=== PATIENT | female | born 1990 | race Caucasian/White ===

== ENCOUNTER 2019-11-18 20:30 | Inpatient (IN) | payer OTHER ==
[~2019-11-18] VITALS: Ht 162.6 cm; Wt 57.6 kg
--- NOTE | 2019-11-18 20:30 | NUR ---
[id number] FROM HOME, POSSIBLE INGESTION UNKNOWN AMOUNT OF PILLS PER RA, BS 151., pt to bed 4, pt awake, arousable, -sob, pt on montior. pending md vigil
[2019-11-18] MEDS ORDERED: LORAZEPAM INJ 2 MG/ML VIAL ONE (20:34)
--- NOTE | 2019-11-18 20:35 | NUR ---
pt was actively seizing, dr. paul at bedside with verbal order for ativan 2mg ivp
[2019-11-18 20:50] LABS: BASOPHILS % (AUTO) 0.2 % (0.0-2.0); EOSINOPHILS % (AUTO) 0.2 % (0.0-6.0); HEMATOCRIT 39 % (33-45); HEMOGLOBIN 12.7 g/dL (11.5-14.8); LYMPHOCYTES # (AUTO) 2.1 /CMM (0.8-4.8); MEAN CORPUSCULAR HGB CONC 32 g/dl (31.0-36.0); MEAN CORPUSCULAR VOLUME 88 fL (82-100); MONOCYTES # (AUTO) 0.6 /CMM (0.1-1.30); MONOCYTES % (AUTO) 7.6 % (2.0-12.0); NEUTROPHILS # (AUTO) 5.5 /CMM (1.8-8.9); PLATELET COUNT (AUTO) 200 /CMM (150-450); RED BLOOD CELL COUNT(AUTO) 4.45 MIL/uL (4.0-5.2); WHITE BLOOD COUNT (AUTO) 8.3 K/uL (4.3-11.0)
[2019-11-18] MEDS ORDERED: LORAZEPAM INJ 2 MG/ML VIAL IV ONE (21:00)
[2019-11-18] MEDS ORDERED: IV NS 0.9% 1,000 ML BAG IV ONE (21:00)
[2019-11-18 21:05] LABS: ALANINE AMINOTRANSFERASE 19 U/L (12-78); ALBUMIN 3.5 g/dL (3.4-5.0); ALCOHOL, BLOOD < 3 mg/dL (0-0); ALKALINE PHOSPHATASE 44 U/L (46-116); ASPARTATE AMINOTRANSFERASE 21 U/L (15-37); BILIRUBIN,DIRECT 0.1 mg/dL (0.0-0.2); BILIRUBIN,TOTAL 0.3 mg/dL (0.2-1.0); CALCIUM, SERUM 8.4 mg/dL (8.5-10.1); CARBON DIOXIDE 20 mmol/L (21-32); CHLORIDE 100 mmol/L (98-107); CREATININE 1.5 mg/dL (0.6-1.3); GLUCOSE 152 mg/dL (74-106); POTASSIUM 3.2 mmol/L (3.5-5.1); SODIUM SERUM 138 mmol/L (136-145); UREA NITROGEN, BLOOD 10 mg/dL (7-18)
[2019-11-18] MEDS: LEVETIRACETAM (500MG) 1,000 MG in IV NS 0.9% 100 ML IV SCH (21:05)
[2019-11-18 21:06] LABS: ACETAMINOPHEN < 2 ug/ml (10-30); SALICYLATE < 2.8 mg/dL (2.8-20.0)
--- NOTE | 2019-11-18 21:08 | NUR ---
PT RETURNED FROM CT
--- NOTE | 2019-11-18 21:20 | NUR ---
Pt's mom Regina contact info
[2019-11-18 21:30] LABS: APPEARANCE,URINE Clear (CLEAR); BILIRUBIN,URINE Negative (NEGATIVE); BLOOD, URINE Negative Ery/uL (NEGATIVE); COLOR,URINE Yellow (YELLOW); KETONES,URINE Negative (NEGATIVE); LEUKOCYTE ESTERASE ,URINE Negative (NEGATIVE); NITRITE, URINE Negative (NEGATIVE); PH,URINE 6.5 (5.0-8.0); PROTEIN,URINE Negative (NEGATIVE); UGLUCOSE Negative (NEGATIVE); UROBILINOGEN,URINE 0.2 EU/dL (0.2)
--- NOTE | 2019-11-18 22:26 | NUR ---
ida hidalgo [facility] [place] - [phone]
[2019-11-18] MEDS ORDERED: PRAZ2CAP2 PO (22:29)
[2019-11-18] MEDS ORDERED: GABA-534 PO (22:29)
[2019-11-18] MEDS ORDERED: ARIP5TAB59 PO (22:29)
[2019-11-18] MEDS ORDERED: ESCI20TA PO (22:29)
--- NOTE | 2019-11-18 23:19 | NUR ---
EDD (ROOMMATE) CONTACT INFORMATION: [phone]
--- NOTE | 2019-11-18 23:31 | NUR ---
PER [facility], PT MOST LIKELY TRANSFERRED TO [facility] PENDING MD TO
--- NOTE | 2019-11-19 00:12 | NUR ---
DR. EVANGELISTA ON THE PHONE WITH DR. DURAN ([facility] )
--- NOTE | 2019-11-19 00:18 | NUR ---
ALIA DURAN, PT WILL BE ADMITTED TO [facility]. INFORMED CHAY FROM [facility]
--- NOTE | 2019-11-19 00:42 | NUR ---
BED ASSIGNMENT 312-1
--- NOTE | 2019-11-19 00:49 | NUR ---
report given to charge nurse ale for elisabet; pt will be transported to 3rd floor
[2019-11-19] MEDS ORDERED: LORAZEPAM INJ 2 MG/ML VIAL IV PRN (01:00)
[2019-11-19] MEDS ORDERED: ONDANSETRON HCL/PF 4 MG/2 ML VIAL IVP PRN (01:00)
[2019-11-19] MEDS ORDERED: ACETAMINOPHEN 325 MG TABLET PO PRN (01:00)
[2019-11-19] MEDS ORDERED: GABAPENTIN 300 MG CAPSULE PO SCH (01:00)
[2019-11-19] MEDS ORDERED: HYDROCODONE/APAP 5/325MG 1 EACH TABLET PO PRN (01:00)
--- NOTE | 2019-11-19 01:43 | NUR ---
PT TO BE TRANSPORTED VIA GURNEY PER PROTOCOL.
[2019-11-19 01:45] VITALS: BP 109/67
--- NOTE | 2019-11-19 01:45 | NUR ---
ADMISSION 29 y/o female admitted for Overdose/Depression. Patient is respond slowly when asked question, A/O x3, not opening her eyes, poor concentration. Per patient she took Lexapro 60, did not continue to answer when asked exactly how many mg or tab of Lexapro and why she took it. Denies pain, skin intact. Fall, seizure precaution maintained.
[2019-11-19 04:00] VITALS: BP 114/65
--- NOTE | 2019-11-19 06:35 | NUR ---
END OF SHIFT REPORT Patient in bed, stable Oxygen saturation on RA. Sinus rhythm in the Tele monitor, no episode of Seizure during the shift. Patient appears weak, depressed, respond slow, A/O x3. Suicide risk assessment done, patient able to answer questions willingly. Psyche consult to follow, sitter to be placed. Charge nurse aware. Will endorse to Oncoming RN.
--- NOTE | 2019-11-19 08:00 | NUR ---
REPAIRER SHOE STICKS OPENING NOTES Received Patient awake and resting in bed. A/O x 3. Patient in stable condition with no acute distress. Breathing even and unlabored on room air with no respiratory distress. Denies pain. No signs and symptoms of pain. Telemonitor in place and patent reading SR with HR-88. 20g PIV on LAC clean, intact, patent and flushing well. Safety precautions in place. Bed locked and set to lowest position with side rails x 2 up. All needs rendered at this time. Call light within reach. Will continue to monitor.
[2019-11-19] MEDS ORDERED: ESCITALOPRAM OXALATE (10 MG) 10 MG TABLET PO SCH (09:00)
[2019-11-19] MEDS ORDERED: ARIPIPRAZOLE 5 MG TABLET PO SCH (09:00)
[2019-11-19] MEDS: Potassium Chloride 20 MEQ in IV NS 0.9% 1,000 ML IV PRN (09:21)
[2019-11-19 09:23] VITALS: BP 114/69
[2019-11-19] MEDS: LEVETIRACETAM (500MG) 1,000 MG in IV NS 0.9% 100 ML IV SCH ×2 (09:53→21:06)
--- NOTE | 2019-11-19 10:48 | NUR ---
MS RN NOTES Per pharmacy, notified Gabby CARVAJAL for clarification of Keppra 500mg IVPB q12h. Per MD, may change Keppra 500mg IVPB q12h to Keppra 500mg PO BID. Order noted and carried out. Patient in stable condition. Will continue to monitor.
--- NOTE | 2019-11-19 11:46 | NUR ---
Social service consult requested by MD for intentional overdose. Per MD notes, pt is a 29-year-old Female brought in by ambulance for evaluation of altered mental status. Paramedics were reportedly called after someone notified them the patient had ingested pills and expressed suicidality. The patient began seizing upon arrival to the emergency department. She was treated with Ativan 2mg with termination of seizure activity. CERTIFIED HYPERBARIC TECHNICIAN met with the pt bedside. CERTIFIED HYPERBARIC TECHNICIAN introduced self and explained her role. Pt is alert and oriented x 3. Pt appears lethargic and depressed. Pt states she lives with friends [place] [id number] in [place]. Pt's emergency contact is her mother Regina . Pt informed CERTIFIED HYPERBARIC TECHNICIAN that she intentionally took 100 tabs of Lexapro due to feeling suicidal. Pt states he has a restraining order against her by another woman due to sending inappropriate love text messages. Pt. has history of psychiatric hospitalization with the most recent in September 2018 [facility]. Pt. was served the restraining order in 2017 [facility] and was placed on a 5150 hold as danger to other. CERTIFIED HYPERBARIC TECHNICIAN asked pt if she would go voluntary to a psychiatric hospital, and pt. declined. Pt states she has a psychiatric diagnosis of PTSD and doesn't like psychiatric hospitals. Pt is unable to contract for safety at this time. Pt denies any current alcohol use. Pt. states she smokes marijuana daily. Pt reports to smoke cigarettes occasionally. 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 A psychiatry consult is pending for the pt. CERTIFIED HYPERBARIC TECHNICIAN updated [facility] with aforementioned information.
[2019-11-19 16:21] VITALS: BP 112/62
--- NOTE | 2019-11-19 19:17 | NUR ---
BINDERY PRODUCTION MANAGER CLOSING NOTES Patient awake and resting in bed. A/O x 3. Patient in stable condition with no acute distress. Breathing even and unlabored on room air with no respiratory distress. Denies pain. No signs and symptoms of pain. Telemonitor in place and patent reading SR with HR-66. 20g PIV on LAC clean, intact, patent and flushing well with NS with KCL infusing at 80ml/hr. Safety precautions in place. Bed locked and set to lowest position with side rails x 2 up. All needs rendered at this time. Call light within reach. Will endorse plan of care to oncoming shift.
--- NOTE | 2019-11-19 19:45 | NUR ---
BLINDSTITCH MACHINE OPERATOR OPENING NOTES PATIENT AWAKE IN BED. SITTER PRESENT AT BEDSIDE. A/OX4. ON ROOM AIR. NO S/S OF SOB AND NO COMPLAINTS OF PAIN AT THIS TIME. IV PRESENT ON LEFT AC, SIZE 20, INTACT & PATENT, KCL NS RUNNING AT 80 CC/HR. BED LOCKED, SIDE RAILS X2, CALL LIGHT WITHIN REACH. WILL CONTINUE TO MONITOR.
[2019-11-19 20:00] VITALS: BP 111/73
[2019-11-19] MEDS: PRAZOSIN HCL 1 MG CAPSULE PO SCH (21:06)
[2019-11-20] VITALS: BP 101/65
[2019-11-20 04:00] VITALS: BP 101/64
[2019-11-20] MEDS: Potassium Chloride 20 MEQ in IV NS 0.9% 1,000 ML IV PRN (07:14)
--- NOTE | 2019-11-20 07:29 | NUR ---
HEALTH PROMOTION OFFICER CLOSING NOTES PATIENT SLEEPING IN BED, EASY TO AWAKEN. SITTER PRESENT AT BEDSIDE. A/OX4. ON ROOM AIR. NO S/S OF SOB AND NO COMPLAINTS OF PAIN AT THIS TIME. TELE MONITOR READING SINUS RHYTHM, HEART RATE 68. IV PRESENT ON LEFT AC, SIZE 20, INTACT & PATENT, KCL NS RUNNING AT 80 CC/HR. BED LOCKED, SIDE RAILS X2, CALL LIGHT WITHIN REACH. WILL ENDORSE TO DAY SHIFT TO FOLLOW PLAN OF CARE.
--- NOTE | 2019-11-20 07:35 | NUR ---
FIRST AID ATTENDANT NOTES PATIENT AWAKE IN BED, SITTER AT BEDSIDE. NO RESPIRATORY DISTRESS, NO C/O PAIN AT THIS TIME. PATIENT WITH NO SI/HI AT THIS TIME. PATIENT'S IV ACCESS SITE INTACT AND PATENT. IV KCL NS INFUSING AT 80ML/HR. PATIENT'S NEEDS ATTENDED, BED ON LOWEST LOCKED POSITION, CALL LIGHT WITHIN REACH. WILL CONTINUE TO MONITOR.
[2019-11-20] MEDS: LEVETIRACETAM (500MG) 1,000 MG in IV NS 0.9% 100 ML IV SCH (08:37)
[2019-11-20 10:49] LABS: BASOPHILS % (AUTO) 0.4 % (0.0-2.0); EOSINOPHILS % (AUTO) 0.5 % (0.0-6.0); HEMATOCRIT 40 % (33-45); HEMOGLOBIN 13.3 g/dL (11.5-14.8); LYMPHOCYTES # (AUTO) 1.3 /CMM (0.8-4.8); LYMPHOCYTES % (AUTO) 18.9 % (20.0-44.0); MEAN CORPUSCULAR HGB CONC 34 g/dl (31.0-36.0); MEAN CORPUSCULAR VOLUME 85 fL (82-100); MONOCYTES # (AUTO) 0.4 /CMM (0.1-1.30); MONOCYTES % (AUTO) 5.5 % (2.0-12.0); NEUTROPHILS # (AUTO) 5.3 /CMM (1.8-8.9); NEUTROPHILS % (AUTO) 74.7 % (43.0-81.0); PLATELET COUNT (AUTO) 213 /CMM (150-450); RED BLOOD CELL COUNT(AUTO) 4.67 MIL/uL (4.0-5.2); WHITE BLOOD COUNT (AUTO) 7.1 K/uL (4.3-11.0)
[2019-11-20 11:29] LABS: CALCIUM, SERUM 9.2 mg/dL (8.5-10.1); MAGNESIUM 1.7 mg/dL (1.8-2.4); PHOSPHORUS 1.9 mg/dL (2.5-4.9); POTASSIUM 4.2 mmol/L (3.5-5.1)
--- NOTE | 2019-11-20 12:22 | NUR ---
M/S RN NOTES NOTIFIED MD REGARDING MAGNESIUM 1.7 AND PHOS 1.9, AWAITING FOR ORDERS. ALSO INFORMED MD THAT PATIENT IS WONDERING ABOUT HER MEDICATIONS BEING DISCONTINUED. PATIENT STATED "I'VE BEEN TAKING THOSE MEDS FOR A YEAR AND IT HELPS ME."
[2019-11-20] MEDS ORDERED: POTASSIUM PHOSPHATE MM 15 MMOL in IV NS 0.9% 250 ML IV SCH (13:00)
[2019-11-20] MEDS ORDERED: Magnesium 1GM/D5W 100ML PREMIX PIGGYBACK IV ONE (13:00)
[2019-11-20] MEDS: Magnesium 1GM/D5W 100ML PREMIX 100 ML IV SCH ×2 (13:00→14:28)
[2019-11-20] MEDS: POTASSIUM PHOSPHATE MM 7.5 MMOL in IV NS 0.9% 100 ML IV SCH ×2 (14:04→17:15)
--- NOTE | 2019-11-20 18:26 | NUR ---
M/S RN NOTES PATIENT AWAKE IN BED, SITTER AT BEDSIDE. PATIENT IN NO RESPIRATORY DISTRESS, NO C/O PAIN AT THIS TIME. PATIENT'S IV ACCESS SITE INTACT AND PATENT. SKIN WARM TO TOUCH. PATIENT'S NEEDS ATTENDED, SAFETY PRECAUTIONS IN PLACE. BED ON LOWEST LOCKED POSITION, CALL LIGHT WITHIN REACH. WILL ENDORSE TO ONCOMING NURSE.
--- NOTE | 2019-11-20 19:30 | NUR ---
RN OPEN NOTES RECEIVED PATIENT AWAKE IN BED WITH SITTER AT BEDSIDE. A/O X3. NO SIGNS OF DISTRESS OR DISCOMFORT. BREATHING EVEN AND UNLABORED. IV ACCESS IN LAC WITH K PHOS CURRENTLY INFUSING, PATENT AND INTACT, NO SIGNS OF REDNESS OR INFILTRATION. DENIES HI/SI. BED IN LOW LOCKED POSITION WITH SIDE RAILS X2. CALL LIGHT WITHIN REACH. WILL CONTINUE TO MONITOR.
[2019-11-20 20:00] VITALS: BP 97/62
[2019-11-20 22:00] VITALS: BP 97/62
[2019-11-20] MEDS: PRAZOSIN HCL 1 MG CAPSULE PO SCH (22:00)
[2019-11-20] MEDS: LEVETIRACETAM SOL (5 ML) 100 MG/ML UDC PO SCH (22:00)
[2019-11-21] MEDS: Potassium Chloride 20 MEQ in IV NS 0.9% 1,000 ML IV PRN (06:17)
--- NOTE | 2019-11-21 06:49 | NUR ---
RN CLOSING NOTES PATIENT AWAKE IN BED WITH SITTER AT BEDSIDE. A/O X3. NO SIGNS OF DISTRESS OR DISCOMFORT. BREATHING EVEN AND UNLABORED. IV ACCESS IN LAC WITH KCL 20MEQ NS INFUSING, PATENT AND INTACT, NO SIGNS OF REDNESS OR INFILTRATION. DENIES HI/SI. ALL NEEDS MET. NO SIGNIFICANT CHANGES THROUGH THE NIGHT. BED IN LOW LOCKED POSITION WITH SIDE RAILS X2. CALL LIGHT WITHIN REACH. WILL ENDORSE TO AM SHIFT FOR RAH.
--- NOTE | 2019-11-21 07:30 | NUR ---
RN MS NOTES PT IN BED, AWAKE, ALERT AND ORIENTED, DENIES PAIN, NOT IN DISTRESS, CALL LIGHT WITHIN REACH, IV FLUIDS INFUSING WELL, SITTER AT BEDSIDE, SAFETY PRECAUTIONS OBSERVED.
[2019-11-21 07:37] LABS: BASOPHILS % (AUTO) 0.4 % (0.0-2.0); EOSINOPHILS % (AUTO) 0.8 % (0.0-6.0); HEMATOCRIT 43 % (33-45); HEMOGLOBIN 14.4 g/dL (11.5-14.8); LYMPHOCYTES # (AUTO) 2.2 /CMM (0.8-4.8); LYMPHOCYTES % (AUTO) 29.6 % (20.0-44.0); MEAN CORPUSCULAR HGB CONC 34 g/dl (31.0-36.0); MEAN CORPUSCULAR VOLUME 85 fL (82-100); MONOCYTES # (AUTO) 0.6 /CMM (0.1-1.30); MONOCYTES % (AUTO) 7.8 % (2.0-12.0); NEUTROPHILS # (AUTO) 4.5 /CMM (1.8-8.9); NEUTROPHILS % (AUTO) 61.4 % (43.0-81.0); PLATELET COUNT (AUTO) 243 /CMM (150-450); RED BLOOD CELL COUNT(AUTO) 5.03 MIL/uL (4.0-5.2); WHITE BLOOD COUNT (AUTO) 7.4 K/uL (4.3-11.0)
[2019-11-21] MEDS: LEVETIRACETAM SOL (5 ML) 100 MG/ML UDC PO SCH ×2 (08:39→20:42)
[2019-11-21] MEDS ORDERED: ESCITALOPRAM OXALATE (10 MG) 10 MG TABLET PO SCH (09:00)
[2019-11-21 09:27] LABS: CALCIUM, SERUM 9.2 mg/dL (8.5-10.1); MAGNESIUM 1.8 mg/dL (1.8-2.4); PHOSPHORUS 3.7 mg/dL (2.5-4.9); POTASSIUM 4.3 mmol/L (3.5-5.1)
--- NOTE | 2019-11-21 18:30 | NUR ---
RN MS NOTES PT IN BED, AWAKE, ALERT AND ORIENTED, NO COMPLAINT OF PAIN OR ANY DISCOMFORT, ON ROOM AIR, IV FLUIDS INFUSING, SEEN BY DR. GRAF TODAY, ALSO SEEN BY CRISIS TEAM MEDIA CONSULTANT, PLACED ON 5150 HOLD FOR DTS, PT AND MOM MERVAT INFORMED, VERBALIZED UNDERSTANDING, PT FOR TRANSFER TO [facility] THIS AFTERNOON, REPORT GIVEN TO CHIKA VALDES, BELONGINGS ACCOUNTED FOR, AWAITING AMBULANCE KILN DOOR BUILDER.
--- NOTE | 2019-11-21 19:44 | NUR ---
MS RN OPENING NOTES PATIENT RECEIVED RESTING IN BED A/O X 3 WITH SITTER AT BEDSIDE. STABLE ON RA BREATHING EVEN AND UNLABORED. NO SIGNS OF ACUTE DISTRESS NOTED. NO COMPLAINTS OF PAIN OR DISCOMFORT. IV LOCATED ON L AC #20. PENDING DISCHARGE- AWAITING FOR TRANSPORTATION. WILL CONTINUE TO MONITOR.
--- NOTE | 2019-11-21 21:03 | NUR ---
MS ARMY SENIOR OFFICER NOTES PATIENT DISCHARGED ACCOMPANIED BY TRANSPORTERS TO GET TRANSFERRED TO [facility]. PATIENT A/O X 4 MEDICALLY STABLE. IV REMOVED WITH LITTLE TO NO BLEEDING, MEDICAL ID BAND REMOVED WELL. DISCHARGE PAPERWORK GIVEN TO TRANSPORTERS, INCLUDING 5150 PAPERWORK. ALL BELONGINGS BROUGHT WITH PATIENT. EDUCATION PROVIDED.
--- NOTE | 2019-11-21 21:07 | NUR ---
MS RN NOTES TRANSPORTERS FORGOT DISCHARGE PACKET- FAXED TO [facility].
== END 2019-11-21 21:30 | DRG 812 ==
LOC: ER 20:38 → TELE 11-19 01:33 → MED 11-20 09:05
PROVIDERS: ADMIT Internal Medicine; ATTEND Internal Medicine
DX: T43.222A Poisoning by selective serotonin reuptake inhibitors, intentional self-harm, initial encounter (principal); N17.0 Acute kidney failure with tubular necrosis; R56.9 Unspecified convulsions; E87.6 Hypokalemia; F43.10 Post-traumatic stress disorder, unspecified; F32.9 Major depressive disorder, single episode, unspecified; Y92.009 Unspecified place in unspecified non-institutional (private) residence as the place of occurrence of the external cause; R40.2413 Glasgow coma scale score 13-15, at hospital admission
CPT/HCPCS: 36415; 70450-TC; 71045-TC; 80048-TC; 80076-TC; 80305; 81000-TC; 83735-TC; 84100-TC; 84702-TC; 84703-TC; 85025-TC; 87081-TC; 97116-TC; 97530-TC; 97535-TC; G0378; G0480; J1953; J2060; J3475; J3480; J3490; J7030